=== PATIENT | male | born 1975 | race African-American/Black ===

== ENCOUNTER 2021-03-24 17:26 | Emergency (ER) | payer OTHER ==
[~2021-03-24] VITALS: Ht 182.9 cm; Wt 86.0 kg
--- NOTE | 2021-03-24 18:55 | NUR ---
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
--- NOTE | 2021-03-24 18:59 | NUR ---
ASSUMED CARE PATIENT. PATIENT C/O LOOSE STOOL X4 DAYS. VS STABLE. CALL LIGHT IN PLACE. NO ACUTE DISTRESS NOTED. CALL LIGHT IN PLACE. WILL CONTINUE TO MONITOR.
[2021-03-24] MEDS ORDERED: SODIUM CHLORIDE FLUSH 10ML SYR IVF ONE (20:00)
[2021-03-24] MEDS ORDERED: SODIUM CHLORIDE 0.9% 1,000ML IVBOLUS ONE (20:00)
[2021-03-24 20:22] LABS: BASOPHILS % (AUTO) 1 % (0-1); EOSINOPHILS % (AUTO) 0 % (1-7); LYMPHOCYTES % (AUTO) 42 % (22-44); MEAN CORPUSCULAR HEMOGLOBIN 28.5 pg (27.5-34.5); MEAN CORPUSCULAR HGB CONC 32.7 g/dL (33.2-36.2); MEAN PLATELET VOLUME 8.4 fL (7.4-10.4); MONOCYTES % (AUTO) 15 % (2-9); NEUTROPHILS % (AUTO) 43 % (42-75); PLATELET COUNT 175 x10^3/uL (130-400); RED CELL DISTRIBUTION WIDTH 13.6 % (9.4-14.8)
[2021-03-24 20:26] LABS: ALANINE AMINOTRANSFERASE 40 U/L (12-78); ALBUMIN 3.2 g/dL (3.4-5.0); CALCIUM 8.2 mg/dL (8.5-10.1); CREATININE 1.18 mg/dL (0.7-1.3)
--- NOTE | 2021-03-24 20:28 | NUR ---
PT RESTING IN ROOM. VS STABLE. CALL LIGHT IN PLACE. WILL CONTINUE TO MONTIOR.
[2021-03-24 20:29] LABS: ALKALINE PHOSPHATASE 71 U/L (45-117); BILIRUBIN,TOTAL 0.3 mg/dL (0.2-1.0); TOTAL PROTEIN 7.3 g/dL (6.4-8.2)
[2021-03-24 20:35] LABS: ANION GAP 4 mmol/L (5-15); CHLORIDE 104 mmol/L (98-107)
--- NOTE | 2021-03-24 22:02 | NUR ---
cousin's number: [phone]
[2021-03-24 22:21] VITALS: BP 116/62
== END 2021-03-24 22:23 | disposition home or self-care (01) ==
LOC: ED 21:32
DX: U07.1 COVID-19 (principal); B34.9 Viral infection, unspecified; R51.9 Headache, unspecified; R19.7 Diarrhea, unspecified
CPT/HCPCS: 36415; 80053; 85025; 96360; 99285; J7030; U0003; U0005

== ENCOUNTER 2021-04-03 18:27 | Emergency (ER) | payer OTHER ==
[~2021-04-03] VITALS: Ht 182.9 cm; Wt 85.9 kg
[2021-04-03 19:08] VITALS: BP 125/69
== END 2021-04-03 20:23 | disposition home or self-care (01) ==
LOC: ED 18:40
DX: U07.1 COVID-19 (principal); J06.9 Acute upper respiratory infection, unspecified
CPT/HCPCS: 99283; U0003; U0005